=== PATIENT | female | born 1990 | race Hispanic/Latino ===

== ENCOUNTER 2018-07-14 05:30 | Emergency (ER) | payer BC, MEDICAID ==
[2018-07-14 05:35] VITALS: BMI 25.8
[2018-07-14] MEDS ORDERED: Albuterol-Ipratrop 3 mg / 0.5 (3 ml) UD INH STA ×3 (05:35→05:37)
[2018-07-14 05:38] VITALS: TEMP 97.5; O2SAT 97
[2018-07-14] MEDS ORDERED: Albuterol-Ipratrop 3 mg / 0.5 (3 ml) UD ONE (05:41)
[2018-07-14] MEDS ORDERED: Dexamethasone 4 mg/1 ml IM STA (05:44)
--- NOTE | 2018-07-14 06:20 | C.PDOC ---
History Of Present Illness 27 year old female with a Hx of asthma and chronic bronchitis presents to the ER with a complaint asthma exacerbation. Patient states today she was cleaning a vacuum at work when she inhaled dust which she believes triggered her asthma causing her to feel chest tightness and SOB. Patient reports she ran out of her nebulizer solution and inhaler. Denies cough or fever. Time Seen by Provider: 07/14/18 05:40 Chief Complaint (Nursing): Respiratory Distress History Per: Patient History/Exam Limitations: no limitations Onset/Duration Of Symptoms: Hrs Current Symptoms Are (Timing): Still Present Initiating Event: Other (Dust inhalation) Quality: Tightness Current Respiratory Medications: See Home Med List Associated Symptoms: denies: Fever, Other (cough) Recent travel outside of the [place]: No Past Medical History Reviewed: Historical Data, Nursing Documentation, Vital Signs Vital Signs: Last Vital Signs Temp 97.5 F L 07/14/18 05:35 Pulse 84 07/14/18 05:54 Resp 18 07/14/18 06:03 BP 139/93 H 07/14/18 05:54 Pulse Ox 97 07/14/18 06:03 - Medical History PMH: Asthma Family History: States: Unknown Family Hx - Social History Hx Alcohol Use: No Hx Substance Use: No - Immunization History Hx Tetanus Toxoid Vaccination: No Hx Influenza Vaccination: No Hx Pneumococcal Vaccination: No Review Of Systems Constitutional: Negative for: Fever, Chills Cardiovascular: Negative for: Chest Pain Respiratory: Positive for: Shortness of Breath, Other (Chest tightness). Negative for: Cough Gastrointestinal: Negative for: Nausea, Vomiting Physical Exam - Physical Exam Appears: Non-toxic Skin: Normal Color, Warm, Dry Head: Atraumatic, Normacephalic Eye(s): bilateral: Normal Inspection Oral Mucosa: Moist Throat: Normal, No Erythema, No Exudate Neck: Normal, Supple Chest: Symmetrical, No Tenderness Cardiovascular: Rhythm Regular Respiratory: Decreased Breath Sounds, No Accessory Muscle Use, No Rales, No Rhonchi, Wheezing (expiratory) Neurological/Psych: Oriented x3, Normal Speech ED Course And Treatment O2 Sat by Pulse Oximetry: 97 (Room air) Pulse Ox Interpretation: Normal Progress Note: Peak flow on arrival was 190, duoneb x2 and decadron administered. On reevaluation, patient reports improvement of symptoms, she is resting comfortably in the ER in no acute respiratory distress, with clear breath sounds, peak flow 350, vitals are stable, will discharge home with Rx and instructions to follow up with PMD or return if symptoms worsen. Disposition Counseled Patient/Family Regarding: Diagnosis, Need For Followup, Rx Given - Disposition Referrals: [facility] [Outside] Disposition: HOME/ ROUTINE Disposition Time: 06:17 Condition: STABLE Additional Instructions: Take medications as directed/ Albuterol nebs as needed Increase fluids Recommend Smoking cessation Return to ER if worse Prescriptions: Albuterol HFA [Ventolin HFA 90 mcg/actuation (8 g)] 2 puff IH [id number] #1 inhaler Albuterol 0.083% [Albuterol 0.083% Inhal Angy (2.5 mg/3 ml) UD] 2.5 mg IH TID #100 neb predniSONE [Prednisone] 40 mg PO DAILY #10 tab Instructions: Asthma, Adult (DC) Forms: [employer] (Japanese) - Clinical Impression Clinical Impression: Exacerbation of asthma - PA / [employer] / Resident Statement MD/DO has reviewed & agrees with the documentation as recorded. - Scribe Statement The provider has reviewed the documentation as recorded by the Scribe Steven Yanes All medical record entries made by the Roniibaugust were at my direction and personally dictated by me. I have reviewed the chart and agree that the record accurately reflects my personal performance of the history, physical exam, medical decision making, and the department course for this patient. I have also personally directed, reviewed, and agree with the discharge instructions and disposition.
[2018-07-14 06:32] VITALS: BP 123/80; PULSE 81; RESP 20
== END 2018-07-14 06:32 | disposition home or self-care (01) ==
LOC: SUPCPDRO 05:30 → C.ER 05:30
DX: J45.901 Unspecified asthma with (acute) exacerbation (principal)
CPT/HCPCS: 94640; 96372; 99285; J1100